=== PATIENT | female | born 1965 | race Caucasian/White ===

== ENCOUNTER 2016-05-13 23:55 | Emergency (ER) | payer MEDICARE ==
[2016-05-13] MEDS ORDERED: OPTIRAY 350 100 ML VIAL HMH IV ONE (23:56)
[2016-05-14] MEDS ORDERED: DILAUDID 1 MG/ML AMP ONE (03:38)
[2016-05-14] MEDS ORDERED: Hydrocodone/APAP 10/325 MG TAB ONE (05:45)
== END 2016-05-14 06:01 | disposition home or self-care (01) ==
LOC: ER 23:55
DX: N93.8 Other specified abnormal uterine and vaginal bleeding (principal); D68.9 Coagulation defect, unspecified; Z85.89 Personal history of malignant neoplasm of other organs and systems; Z92.3 Personal history of irradiation; I89.0 Lymphedema, not elsewhere classified; E66.01 Morbid (severe) obesity due to excess calories; Z68.44 Body mass index [BMI] 60.0-69.9, adult; J44.9 Chronic obstructive pulmonary disease, unspecified; E11.9 Type 2 diabetes mellitus without complications; Z79.4 Long term (current) use of insulin; I10 Essential (primary) hypertension
CPT/HCPCS: 36415; 71260; 74177; 80048; 81001; 85025; 85610; 85730; 96374; 99285; J1170; Q9967